=== PATIENT | female | born 1995 | race Caucasian/White ===

== ENCOUNTER 2023-09-23 16:32 | Emergency (ER) | payer MEDICAID ==
[2023-09-23 17:10] VITALS: O2SAT 100
[2023-09-23] MEDS ORDERED: DEXAMETHASONE 10 MG/ML VIAL PO STA (17:32)
[2023-09-23] MEDS ORDERED: KETOROLAC 30 MG/ML VIAL IM STA (17:32)
[2023-09-23] MEDS ORDERED: CHERRY SYRUP 10 ML UDC PO ONE (17:32)
[2023-09-23] MEDS ORDERED: HYDROcod/ACET 5/325 Prepack 4 PO STA (18:04)
[2023-09-23] MEDS ORDERED: CYCLOBENZAPRINE 10 MG Prepack 2 PO PRN (18:04)
--- NOTE | 2023-09-23 18:07 | ED Physician Documentation ---
PD HPI BACK PAIN - Stated complaint Stated Complaint: HIP PX - Chief complaint Chief Complaint: Back Pain - History obtained from History obtained from: Patient, Family (mother) - History of Present Illness Timing - onset: How many days ago (2) Timing - duration: Days (2) Timing - details: Gradual onset, Still present Location: Lower, Left Quality: Pain, Spasm, Sharp, Similar to prior episodes Associated symptoms: No: Fever, Weakness, Numbness, Incontinent of urine, Unable to urinate, Hematuria, Incontinent of stool Improves with: Rest, Position Worsened by: Movement Contributing factors: Lifting, Twisting Similar symptoms before: Diagnosis (sciatica) Recently seen: Not recently seen - Additional information Additional information: Lizette Cardenas is a 27-year-old female with a 9-year history of back pain related to childbirth. She has 4 children at home she is recently moved to the area she is now near her mother and she has not establish care here. She indicates that she usually just lives with her back pain and that she has previously been put on gabapentin. She has not had imaging studies done. She has not had physical therapy prescribed. She is gives a history of poor access to medical care. Today she is here with increase in her back pain to where she is having difficult time getting out of bed. She has had similar episodes previously. She collapsed in front of her mother today with pain and her mother brought her to the emergency department. She is giving history with tears. Review of Systems Constitutional: denies: Fever Eyes: denies: Decreased vision Ears: denies: Ear pain Nose: denies: Congestion Throat: denies: Sore throat Cardiac: denies: Chest pain / pressure, Palpitations Respiratory: denies: Dyspnea, Cough GI: denies: Abdominal Pain, Nausea, Vomiting, Constipation, Diarrhea : denies: Dysuria Musculoskeletal: reports: Back pain. denies: Neck pain PD PAST MEDICAL HISTORY - Past Medical History Past Medical History: Yes Musculoskeletal: Chronic back pain - Past Surgical History Past Surgical History: Yes HEENT: Tonsil/Adenoidectomy - Present Medications Home Medications: Ambulatory Orders Medication Instructions Recorded Confirmed Cyclobenzaprine [Flexeril] 10 mg PO TID PRN #20 tablet 09/23/23 HYDROcod/ACETAM 5/325 [[place] 5/325] 1 - 2 tablet PO Q6H PRN #14 tablet 09/23/23 Ondansetron Odt [Zofran] 4 mg TL Q6H PRN #10 tablet 09/23/23 - Allergies Allergies/Adverse Reactions: Allergies Allergy/AdvReac Type Severity Reaction Status Date / Time No Known Drug Allergies Allergy Verified 09/23/23 17:02 - Social History Does the pt smoke?: No Smoking Status: Never smoker Does the pt drink ETOH?: No Does the pt have substance abuse?: No - Immunizations Immunizations are current?: Yes - POLST Patient has POLST: No PD ED PE NORMAL - Vitals Vital signs reviewed: Yes (normal ) - General General: Alert and oriented X 3, Well developed/nourished, Other (thin 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 affect consistent with pain ) - HEENT HEENT: Atraumatic, PERRL, EOMI - Respiratory Respiratory: No respiratory distress - Back Back: No CVA TTP, No spinal TTP, Other (mild point tenderness over the lower lattimus at the insertion to the posterior illiac) - Derm Derm: Normal color, Warm and dry - Extremities Extremities: No deformity, No edema - Neuro Neuro: Alert and oriented X 3, 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, No motor deficit, No sensory deficit, Normal speech Eye Opening: Spontaneous Motor: Obeys Commands Verbal: Oriented GCS Score: 15 - Psych Psych: Other (mood is defeated affect is flat) Results - Vitals Vitals: Vital Signs - 24 hr 09/23/23 16:55 Temperature 36.3 C L Heart Rate 76 Respiratory 16 Rate Blood Pressure 109/71 O2 Saturation 100 Oxygen O2 Source Room air PD Medical Decision Making - ED course Complexity details: re-evaluated patient, considered differential, d/w patient, d/w family ED course: 27-year-old female with a history of back pain presents to the emergency department with exacerbation of back pain and appears to be in pain. She is administered dexamethasone and Toradol we will place her on a course of pain medication a muscle relaxant and give her a primary care doctor for follow-up. Departure - Departure Disposition: 01 Home, Self Care Clinical Impression: Sciatica Qualifiers: Laterality: left Qualified Code(s): M54.32 - Sciatica, left side Condition: Stable Instructions: ED Sciatica Follow-Up: [facility] [place] [Provider Group] Prescriptions: Cyclobenzaprine [Flexeril] 10 mg PO TID PRN #20 tablet PRN Reason: Spasms HYDROcod/ACETAM 5/325 [[place] 5/325] 1 - 2 tablet PO Q6H PRN #14 tablet PRN Reason: Pain Ondansetron Odt [Zofran] 4 mg TL Q6H PRN #10 tablet PRN Reason: Nausea / Vomiting Comments: Calesta, today it looks like the back pain you are having is sciatica or a pinched nerve in your back. This usually takes several days to work its way out. Today we have given you some dexamethasone and Toradol which should help with your pain today. We are dispensing some pain medication and muscle relaxant. The long-term plan for this type back pain is physical therapy. I have made a referral to a clinic in [place] and a follow-up for referral to for physical therapy is indicated. Medications have been E scribed to [facility] in [place].
[2023-09-23] MEDS ORDERED: ONDANSETRON ODT 4 MG Prepack 2 TL PRN (18:27)
[2023-09-23 19:34] VITALS: BP 114/72
== END 2023-09-23 18:50 | disposition home or self-care (01) ==
LOC: ED 16:32
DX: M54.32 Sciatica, left side (principal)
CPT/HCPCS: 96372; 99283; A9270